=== PATIENT | male | born 1990 | race Two or more races ===

== ENCOUNTER → 2017-06-15 | Emergency (ER) | payer SELFPAY | END | disposition left against medical advice (07) | LOC: ER 23:11 | DX: Z04.6 Encounter for general psychiatric examination, requested by authority (principal); Z53.21 Procedure and treatment not carried out due to patient leaving prior to being seen by health care provider ==

== ENCOUNTER 2019-08-28 01:32 | Emergency (ER) | payer MEDICAID ==
[~2019-08-28] VITALS: Ht 175.3 cm; Wt 113.4 kg
[2019-08-28 02:38] VITALS: BP 143/98
== END 2019-08-28 05:28 | disposition left against medical advice (07) ==
LOC: ER 01:34
DX: R42 Dizziness and giddiness (principal); Z53.21 Procedure and treatment not carried out due to patient leaving prior to being seen by health care provider

== ENCOUNTER 2019-08-28 15:31 | Emergency (ER) | payer MEDICAID ==
[~2019-08-28] VITALS: Ht 175.3 cm; Wt 113.4 kg
[2019-08-28 16:05] VITALS: BP 143/86
== END 2019-08-28 18:12 | disposition home or self-care (01) ==
LOC: ER 15:31
DX: H66.93 Otitis media, unspecified, bilateral (principal); R42 Dizziness and giddiness
CPT/HCPCS: 82962; 93005

== ENCOUNTER 2019-09-10 04:24 | Emergency (ER) | payer MEDICAID ==
[~2019-09-10] VITALS: Ht 175.3 cm; Wt 113.4 kg
[2019-09-10 06:35] VITALS: BP 121/79
== END 2019-09-10 06:56 | disposition home or self-care (01) ==
LOC: ER 04:24
DX: H66.93 Otitis media, unspecified, bilateral (principal); F15.10 Other stimulant abuse, uncomplicated

== ENCOUNTER 2019-09-10 18:17 | Emergency (ER) | payer MEDICAID ==
[~2019-09-10] VITALS: Ht 175.3 cm; Wt 113.4 kg
[2019-09-10 20:23] VITALS: BP 125/77
== END 2019-09-10 20:27 | disposition home or self-care (01) ==
LOC: ER 18:21
DX: H65.90 Unspecified nonsuppurative otitis media, unspecified ear (principal); R09.82 Postnasal drip; Z88.8 Allergy status to other drugs, medicaments and biological substances

== ENCOUNTER 2019-09-17 09:52 | Emergency (ER) | payer MEDICAID ==
[~2019-09-17] VITALS: Ht 175.3 cm; Wt 113.4 kg
[2019-09-17 10:15] VITALS: BP 148/76
== END 2019-09-17 11:26 | disposition home or self-care (01) ==
LOC: ER 09:54
DX: R42 Dizziness and giddiness (principal); F41.1 Generalized anxiety disorder; F15.10 Other stimulant abuse, uncomplicated
CPT/HCPCS: 70450

== ENCOUNTER 2019-10-23 19:53 | Emergency (ER) | payer MEDICAID ==
[~2019-10-23] VITALS: Ht 175.3 cm; Wt 109.9 kg
[2019-10-23 20:48] LABS: Alcohol, Urine < 3.0 mg/dL (0-5); Amphetamine Screen, Urine NEGATIVE (NEGATIVE); Barbiturate Scree,Urine NEGATIVE (NEGATIVE); Benzodiazephine Screen, Urine NEGATIVE (NEGATIVE); Cannabinoid Screen, Urine NEGATIVE (NEGATIVE); Cocaine Screen, Urine NEGATIVE (NEGATIVE); Opiate Scree,Urine NEGATIVE (NEGATIVE); Phencyclidine Screen, Urine NEGATIVE (NEGATIVE)
[2019-10-23 23:07] VITALS: BP 130/80
== END 2019-10-23 23:23 | disposition home or self-care (01) ==
LOC: ER 19:53
DX: F41.9 Anxiety disorder, unspecified (principal); F22 Delusional disorders; F15.10 Other stimulant abuse, uncomplicated
CPT/HCPCS: 36415; 80307; 84484; 93005

== ENCOUNTER 2020-01-17 19:31 | Emergency (ER) | payer MEDICAID ==
[~2020-01-17] VITALS: Ht 175.3 cm; Wt 113.4 kg
[2020-01-17 21:38] VITALS: BP 103/70
== END 2020-01-17 22:02 | disposition home or self-care (01) ==
LOC: ER 19:31
DX: E86.0 Dehydration (principal); R42 Dizziness and giddiness; Z88.8 Allergy status to other drugs, medicaments and biological substances
CPT/HCPCS: 81002